=== PATIENT | male | born 1985 | race Caucasian/White ===

== ENCOUNTER 2024-04-06 17:07 | Emergency (ER) | payer OTHER, SELFPAY ==
[2024-04-06 17:20] VITALS: BP 120/84; PULSE 68; RESP 16; TEMP 36.7; O2SAT 100
--- NOTE | 2024-04-06 17:41 | ED_ITS ---
HPI - Ear Problem General Chief complaint: Ear Stated complaint: FB R EAR Time Seen by Provider: 04/06/24 17:28 Source: patient, RN notes reviewed and old records reviewed Mode of arrival: ambulatory Limitations: no limitations History of Present Illness HPI Narrative: 38 year old male presents to [facility] care with complaints of getting the end of a Q-Tip stuck in his right ear this morning and has been unable to get the cotton out with his hearing decreased.Patient reports that his right ear is a little sore from trying to get the cotton out himself. Patient reports no other ill symptoms. MD Complaint: foreign body (right ear) Discharge from ear: Reports no Treatment prior to arrival: other (tried to remove on own unsuccessful) Related Data Allergies Allergy/AdvReac Type Severity Reaction Status Date / Time No Known Allergies Allergy Verified 04/06/24 17:14 Review of Systems Review of Systems: CONSTITUTIONAL: Denies malaise, chills, sweats, or fever. EYES: Denies visual changes, redness, or discharge. ENT: Reports no rhinorrhea, congestion, sinus pain, some right otalgia and no sore throat. CARDIOVASCULAR: Denies chest pain, palpitations, or edema. RESPIRATORY: Reports no cough.? Denies dyspnea. GASTROINTESTINAL: Denies abdominal pain, nausea, vomiting, diarrhea SKIN: Denies rash or itching. MUSCULOSKELETAL: Denies myalgia. NEUROLOGIC: Denies headache. All systems reviewed & are unremarkable except as noted in HPI and below PMFSH Past Medical History Medical History (Updated 04/09/24 @ 08:34 by Francesca Cho NP) Ankle fracture, left Wound infection sepsis was hospitalized Social History Social History (Updated 04/09/24 @ 08:28 by Francesca Cho NP) Smoking status: Never smoker Alcohol intake: current Alcohol use details: social Substance use type: does not use Living arrangements: with family Additional occupation/education comments: teacher Gender identity (if verbalized by the patient): Male Comments At time of signature, agree with nursing past medical, surgical, social and family history. There is no relevant family history pertinent to the presenting complaint Exam Narrative: GENERAL: Well-appearing, well-nourished, and in no acute distress. HEAD: Normocephalic EYES: PERRLA, conjunctivae clear ENT: Nares clear, turbinates edematous and erythematous, clear discharge. Mucous membranes moist. Right ear canal irritated with some redness. TM pearly chin with dull light reflex bilaterally; no tragal tenderness. Oropharynx erythematous without lesions. Tonsils not enlarged and without exudate, no drooling, no hoarseness, no trismus, uvula midline. NECK: Supple. No lymphadenopathy CHEST: Clear to auscultation, breath sounds equal. No wheezing, rhonchi, rales, or stridor. No respiratory distress, speaks in full sentences.SAO2 199% on rom air HEART: Regular rate and rhythm. No murmur heard. SKIN: Warm, dry, no rash. NEURO: Alert and oriented x3. PSYCH: Normal mood and affect Course Course Emergency Course: Patient is aware of diagnosis, understands and agrees to treatment plan.? Anticipatory guidance given.? Patient agrees to follow-up as directed and is aware of reasons to seek care at the emergency department. Portions of this record may have been created with voice recognition software Level of Care: Express Care Visit Vital Signs Vital signs: Vital Signs Temperature 36.7 C 04/06/24 17:20 Pulse Rate 68 04/06/24 17:20 Respiratory Rate 16 04/06/24 17:20 Blood Pressure 120/84 04/06/24 17:20 Pulse Oximetry 100 04/06/24 17:20 Temperature 36.7 C 04/06/24 17:20 Pulse Rate 68 04/06/24 17:20 Respiratory Rate 16 04/06/24 17:20 Blood Pressure 120/84 04/06/24 17:20 Pulse Oximetry 100 04/06/24 17:20 Reviewed Procedures FB Removal Ear Foreign Body #1: Foreign Body Removal Date: 04/06/24 Foreign Body Removal Time: 17:40 Location: ear canal (R) Foreign Body Suspected: other (end of qtip) TM intact pre-procedure: unable to visualize Foreign Body Removed: yes Foreign Body Removal Technique: forceps Tympanic Membrane Intact Post Procedure: Yes Patient Tolerated Procedure: well Complications: other (some redness of ear canal) Additional Comments: Tolerated removal of piece of cotton from Q-tip removed using alligator forceps to remove from right ear,ear canal noted to be reddened TM intact. Medical Decision Making Differential Diagnosis Differential Diagnosis: right ear pain, irritation of right ear canal, foreign body right ear, otitis externa Medical Records Medical records reviewed: Yes I reviewed the external patient's medical records. Vital Signs Vital Signs: Vital Signs Temperature 36.7 C 04/06/24 17:20 Pulse Rate 68 04/06/24 17:20 Respiratory Rate 16 04/06/24 17:20 Blood Pressure 120/84 04/06/24 17:20 Pulse Oximetry 100 04/06/24 17:20 Temperature 36.7 C 04/06/24 17:20 Pulse Rate 68 04/06/24 17:20 Respiratory Rate 16 04/06/24 17:20 Blood Pressure 120/84 04/06/24 17:20 Pulse Oximetry 100 04/06/24 17:20 Critical Care Time Critical Care Time Critical Care Time: No Discharge Plan Discharge Clinical Impression: Foreign body in right ear Qualifiers: Encounter type: initial encounter Qualified Code(s): T16.1XXA - Foreign body in right ear, initial encounter Otitis externa Qualifiers: Otitis externa type: noninfectious Noninfectious otitis externa type: reactive Chronicity: acute Laterality: right Qualified Code(s): H60.551 - Acute reactive otitis externa, right ear Patient Disposition: Home, Self-Care Condition: Stable Instructions: Antibiotic Form, Swimmer's Ear (GEN), Ear Foreign Body (ED) Additional Instructions: Increase fluids especially juices and water Eynq-bof-ovyqazs cough and cold medicine of your choice for your symptoms do not put Q-tips into the ear canal heat to the face 20-30 minutes 4-6 times a day for pain Salt water gargles, throat lozenges or throat sprays as desired Antibiotic ear drops as directed-- for 7 days If your symptoms persist, change or worsen significantly before you can contact your personal physician then please, without delay, go to the emergency department for further evaluation. Follow-up with PCP in 7-10 days or sooner if needed Follow up with PCP soon in regards to your blood pressure which is elevated above threshold for referral. Blood pressure above 120/80 may indicate pre-hypertension. 120/84 minimal elevation Patient Language: [place] Citizen Prescriptions: New ofloxacin 0.3 % drops 5 drp RIGHT EAR BID 7 Days Qty: 10 0RF Follow-up/Referrals: PHYSICIAN,MESSENGER COPY [Primary Care Provider] - Time of Disposition: 17:54 Quality Sergio Coma Scale Eyes: Open Verbal: Oriented and Alert Motor: Follows Commands [place] Coma Total Score: 15
== END 2024-04-06 17:56 | disposition home or self-care (01) ==
PROVIDERS: Emergency Provider Registered Nurse
DX: T16.1XXA Foreign body in right ear, initial encounter (principal); W44.8XXA Other foreign body entering into or through a natural orifice, initial encounter; H60.551 Acute reactive otitis externa, right ear
CPT/HCPCS: 69200; 99213; G0463